=== PATIENT | female | born 1975 | race American Indian/Alaskan Native ===

== ENCOUNTER 2019-05-30 12:12 | Emergency (ER) | payer BC ==
[2019-05-30 12:37] VITALS: BP 154/86
[2019-05-30] MEDS ORDERED: BOOSTRIX IM ONE (12:39)
--- NOTE | 2019-05-30 12:39 | Event Note ---
ED Screening Note Date of service: 05/30/19 Time: 12:35 ED Screening Note: This is a 44 y.o. F. that presents to the ER with laceration to right forearm. Patient states she misstep at work and fell while at work. Tetanus not UTD. PMH DM & HTN Denies hitting her head or loss of consciousness This initial assessment/diagnostic orders/clinical plan/treatment(s) is/are subject to change based on patients health status, clinical progression and re- assessment by fellow clinical providers in the ED. Further treatment and workup at subsequent clinical providers discretion. Patient/guardian urged not to elope from the ED as their condition may be serious if not clinically assessed and raquel boothe. Initial orders include: XR of right forearm Tetanus vaccine
[2019-05-30] MEDS ORDERED: NORCO 10/325 PO ONE (13:50)
--- NOTE | 2019-05-30 13:54 | Emergency Department Report ---
ED Laceration HPI - HPI Chief Complaint: Wound/Laceration Stated Complaint: CUT ON ARM Time Seen by Provider: 05/30/19 12:35 Occurred When: Today Location: Upper Extremity Severity: mild Tetanus Status: Not up to Date Laceration Symptoms: Yes Pain, No Foreign Body Sensation, No Numbness, No Weakness Other History: This is a 44-year-old female nontoxic, well nourished in appearance, no acute signs of distress presents to the ED with c/o of right forearm lac that occurred today by a glass accidentally. Patient denies decreased sensation or range of motion. Patient stated bleeding is under control. Denies any numbness, tingling, fever, chills, nausea, vomiting, chest pain, shortness of breath, headache or stiff neck. Patient denies any allergies to significant past medical history. Patient is that he is not up-to-date with tetanus. ED Review of Systems ROS: Stated complaint: CUT ON ARM Other details as noted in HPI Constitutional: denies: chills, fever Eyes: denies: eye pain, eye discharge, vision change ENT: denies: ear pain, throat pain Respiratory: denies: cough, shortness of breath, wheezing Cardiovascular: denies: chest pain, palpitations Endocrine: no symptoms reported Gastrointestinal: denies: abdominal pain, nausea, diarrhea Genitourinary: denies: urgency, dysuria, discharge Musculoskeletal: denies: back pain, joint swelling, arthralgia Skin: denies: rash, lesions Neurological: denies: headache, weakness, paresthesias Psychiatric: denies: anxiety, depression Hematological/Lymphatic: denies: easy bleeding, easy bruising ED Past Medical Hx - Past Medical History Previous Medical History?: No Hx Hypertension: Yes Hx Diabetes: Yes Additional medical history: Iron deficiency anemia - Surgical History Past Surgical History?: Yes Additional Surgical History: C section. Hysterectomy - Social History Smoking Status: Never Smoker Substance Use Type: None - Medications Home Medications: Home Medications Medication Instructions Recorded Confirmed Last Taken Type ALBUTEROL Inhaler (OR & NICU) 2 puff IH QID PRN #1 inhalation 11/10/15 Unknown Rx [ProAir HFA Inhaler] Famotidine [Pepcid] 20 mg PO BID #28 tablet 11/10/15 Unknown Rx Ondansetron [Zofran Odt] 4 mg PO Q8HR #10 tab.rapdis 11/10/15 Unknown Rx Acetaminophen/Codeine [Tylenol 1 tab PO Q6H PRN #12 tab 05/30/19 Unknown Rx /Codeine # 3 tab] Sulfamethoxazole/Trimethoprim 1 each PO BID #14 tablet 05/30/19 Unknown Rx [Bactrim DS TAB] Laceration Physical Exam - Exam General: Vital signs noted. No distress. Alert and acting appropriately. Wound Length (cm): 3 Laceration Location: Upper Extremity Full Body Front + Back: 1 - Laceration present here Laceration Exam: Yes Normal Distal CMS, No Foreign Body, No Exposed Tendon, Vessel, or Nerve, No Tendon Injury ED Course Vital Signs 05/30/19 12:36 Temperature 98.3 F Pulse Rate 66 Respiratory 16 Rate Blood Pressure 154/86 [Right] O2 Sat by Pulse 100 Oximetry - Reevaluation(s) Reevaluation #1: 05/30/19 13:51 Patient is speaking in full sentences with no signs of distress noted. - Consultations Consultation #1: 05/30/19 15:19 Patient has been consulted with Ramin Zelaya about patient history, physical exam, and xray results and examined patient and reviewed xrays and stated patient can be sutured with outpatient follow-up. - Laceration /Wound Repair Right Wound Location: upper extremity Wound Length (cm): 3 Wound's Depth, Shape: superficial Wound Explored: clean Irrigated w/ Saline (ccs): 40 Betadine Prep?: Yes Volume Anesthetic (ccs): 3 (2% lidocaine plain) Wound Debrided: minimal Wound Repaired With: sutures Suture Size/Type: 4:0, proline Number of Sutures: 5 Layer Closure?: Yes Deep Layer Suture Size/Type: 4:0 (vicryl) Number Deep Layer Sutures: 1 Sterile Dressing Applied?: Yes Progress: Under sterile field, I used Betadine to clean the area. I then used 40 mL of normal saline to flush the area. I then used 2% lidocaine plain and injected 3 mL to the wound. I then used 4-0 Vicryl for deep edematous with total of 1 stitch placed. I then used a 4-0 Prolene to suture the laceration. Number of stitches 6. I then applied a sterile 4 x 4 with tape. Minimal bleeding noted but is under control. Patient tolerated procedure well with no signs of distress. ED Medical Decision Making - Medical Decision Making This is a 44-year-old female that presents with laceration. Patient is stable and was examined by me. Xray obtained and dictated by the radiologist with no foreign biody noted. The laceration suturing has been performed and has been performed and patient tolerated well. A sterile dressing has been applied. Patient was educated on proper wound care. Patient is discharged with Bactrim and Tylenol with codeine and was instructed not to operate any machinery while taking Tylenol with codeine due to drowsiness. Patient was instructed to return in 10 days for suture removal. Patient received a tetanus in the ER as well as [place] for pain. Patient stated that a family member will drive patient home after discharge due to possible tho of [place]. Patient was instructed to refer to Follow-up with a primary care doctor in 3-5 days or if symptoms worsen and continue return to emergency room as soon as possible. At time of discharge, the patient does not seem toxic or ill in appearance. No acute signs of distress noted. Patient agrees to discharge treatment plan of care. No further questions noted by the patient. Critical care attestation.: If time is entered above; I have spent that time in minutes in the direct care of this critically ill patient, excluding procedure time. ED Disposition Clinical Impression: Laceration Disposition: DC-01 TO HOME OR SELFCARE Is pt being admited?: No Does the pt Need Aspirin: No Condition: Stable Instructions: Suture Care (ED), Laceration (ED), Acetaminophen/Codeine (By mouth) Additional Instructions: Follow-up with a primary care doctor in 3-5 days or if symptoms worsen and continue return to emergency room as soon as possible. Prescriptions: Sulfamethoxazole/Trimethoprim [Bactrim DS TAB] 1 each PO BID #14 tablet Acetaminophen/Codeine [Tylenol /Codeine # 3 tab] 1 tab PO Q6H PRN #12 tab PRN Reason: Pain , Severe (7-10) Referrals: BLANCA MISHRA MD [Primary Care Provider] - 3-5 Days PRIMARY MD YRIS [Referring] - 3-5 Days GEORGE YI MD [Staff Physician] - 3-5 Days [facility] [Outside] - 3-5 Days [facility] [Outside] - 3-5 Days Forms: Work/School Release Form(ED)
--- NOTE | 2019-05-30 13:58 | XRay Report ---
RIGHT FOREARM, 2 VIEWS INDICATION: laceration, r/o foreign body. COMPARISON: None. IMPRESSION: The bony structures and joint spaces are intact and unremarkable. 2 subtle radiodensiti es are identified which are suspicious for foreign bodies. One density is lateral to the midshaft of the radius and just beneath the skin. A second smaller density is identified near the same level in t he anterior soft tissues. Please correlate with the images. Signer Name: Hank Baez Jr, MD Signed: 05/30/2019 1:53 PM Workstation Name: [id number]
== END 2019-05-30 15:58 | disposition home or self-care (01) ==
LOC: ED 12:12
DX: S51.811A Laceration without foreign body of right forearm, initial encounter (principal); I10 Essential (primary) hypertension; E11.9 Type 2 diabetes mellitus without complications; Z98.890 Other specified postprocedural states; Z90.710 Acquired absence of both cervix and uterus; Z79.899 Other long term (current) drug therapy; W25.XXXA Contact with sharp glass, initial encounter; Y93.89 Activity, other specified; Y92.89 Other specified places as the place of occurrence of the external cause; Y99.8 Other external cause status
CPT/HCPCS: 90471; 90715; 99283

== ENCOUNTER 2019-06-12 11:59 | Emergency (ER) | payer BC ==
--- NOTE | 2019-06-12 12:39 | Emergency Department Report ---
Suture/Staple Removal - HPI Chief Complaint: Laceration/Recheck/Suture Stated Complaint: TO GET STITCHES REMOVED Time Seen by Provider: 06/12/19 12:34 When Sutures or [place] Placed: 05/30/19 Wound Location: right anterior forearm ED Review of Systems ROS: Stated complaint: TO GET STITCHES REMOVED Other details as noted in HPI Comment: All other systems reviewed and negative ED Past Medical Hx - Past Medical History Previous Medical History?: Yes Hx Hypertension: Yes Hx Diabetes: Yes Additional medical history: Iron deficiency anemia - Surgical History Past Surgical History?: Yes Additional Surgical History: C section. Hysterectomy - Social History Smoking Status: Never Smoker Substance Use Type: None - Medications Home Medications: Home Medications Medication Instructions Recorded Confirmed Last Taken Type ALBUTEROL Inhaler (OR & NICU) 2 puff IH QID PRN #1 inhalation 11/10/15 Unknown Rx [ProAir HFA Inhaler] Famotidine [Pepcid] 20 mg PO BID #28 tablet 11/10/15 Unknown Rx Ondansetron [Zofran Odt] 4 mg PO Q8HR #10 tab.rapdis 11/10/15 Unknown Rx Acetaminophen/Codeine [Tylenol 1 tab PO Q6H PRN #12 tab 05/30/19 Unknown Rx /Codeine # 3 tab] Sulfamethoxazole/Trimethoprim 1 each PO BID #14 tablet 05/30/19 Unknown Rx [Bactrim DS TAB] Suture Removal Exam - Exam General: Vital signs noted. No distress. Alert and acting appropriately. Wound: No Pathologic Erythema, No Tenderness, No Drainage, No Pus, No Wound Dehiscence Other Systems: All other systems reviewed and are unremarkable. right forearm laceration is clean, dry, intact without signs of infection, very small area of hardened tissue, no induration, no fluctuance all sutures removed without difficulty, no wound dehiscence, wound is well approximated advised pt to please continue to keep area clean and dry. no hot tub or pool. follow up with a primary care doctor in the next 2-3 days. return to the em ergency room for any new or worsening symptoms or any signs of infection. ED Recheck MDM - Differential Diagnosis Suture/Staple Removal Critical care attestation.: If time is entered above; I have spent that time in minutes in the direct care of this critically ill patient, excluding procedure time. ED Disposition Clinical Impression: Visit for suture removal Disposition: DC-01 TO HOME OR SELFCARE Is pt being admited?: No Does the pt Need Aspirin: No Condition: Stable Instructions: Suture Removal (ED) Additional Instructions: please continue to keep area clean and dry. no hot tub or pool. follow up with a primary care doctor in the next 2-3 days. return to the emergency room for any new or worsening symptoms or any signs of infection. Referrals: [facility] [Provider Group] - 2-3 Days [facility] [Outside] - 2-3 Days [facility] [Outside] - 2-3 Days Time of Disposition: 12:39 Print Language: PORTUGUESE
[2019-06-12 14:06] VITALS: BP 130/75
== END 2019-06-12 14:05 | disposition home or self-care (01) ==
LOC: ED 11:59
DX: S51.811D Laceration without foreign body of right forearm, subsequent encounter (principal); X58.XXXD Exposure to other specified factors, subsequent encounter